=== PATIENT | female | born 1960 | race Caucasian/White ===

== ENCOUNTER 2018-03-27 19:01 | Emergency (ER) | payer OTHER, MEDICARE ==
[2018-03-27] MEDS ORDERED: Ondansetron 4 MG/2 ML SDV IVPUSH ONE (19:12)
[2018-03-27] MEDS ORDERED: Sodium Chloride 0.9% 10 ML Syringe FLUSH PRN (19:12)
[2018-03-27] MEDS ORDERED: Morphine 10 MG/ML Syringe IVPUSH ONE (19:12)
[2018-03-27] MEDS ORDERED: Sodium Chloride 0.9% 1,000 ML IV ONE ×2 (19:12→21:04)
[2018-03-27] MEDS ORDERED: Sodium Chloride 0.9% 2.5 ML Syringe FLUSH PRN (19:12)
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
[2018-03-27 20:00] LABS: CHLORIDE,CL 103 mmol/L (98-107); SODIUM,NA 140 mmol/L (136-145)
[2018-03-27] MEDS ORDERED: Iopamidol 755 MG/ML 200 ML Multipack Bottle IVPUSH STA (20:38)
[2018-03-27] MEDS ORDERED: Ketorolac 30 MG/ML SDV IVPUSH ONE (21:40)
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
== END 2018-03-27 22:00 | disposition home or self-care (01) ==
LOC: MW.ED 19:01
DX: S20.212A Contusion of left front wall of thorax, initial encounter (principal); S90.02XA Contusion of left ankle, initial encounter; S90.01XA Contusion of right ankle, initial encounter; S60.221A Contusion of right hand, initial encounter; E11.9 Type 2 diabetes mellitus without complications; Z88.0 Allergy status to penicillin; Z88.8 Allergy status to other drugs, medicaments and biological substances; V49.9XXA Car occupant (driver) (passenger) injured in unspecified traffic accident, initial encounter; W22.11XA Striking against or struck by driver side automobile airbag, initial encounter
CPT/HCPCS: 36415; 71045; 71260; 72125; 73120; 73610; 73620; 74177; 80053; 83690; 84484; 85025; 85610; 93005; 96361; 96374; 96375; 99285; G0390; G0480; J1885; J2270; J2405; J7040; Q9967

== ENCOUNTER 2018-03-28 13:29 | Emergency (ER) | payer OTHER, MEDICARE ==
[2018-03-28] MEDS ORDERED: Ketorolac 60 MG/2 ML SDV IM ONE (13:36)
[2018-03-28] MEDS ORDERED: Cyclobenzaprine 10 MG Tab PO ONE (13:39)
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
--- NOTE | 2018-03-28 14:30 | CR ---
EXAMINATION: Two-view chest (PA and Lateral views). HISTORY: Shortness of breath. FINDINGS: The trachea is midline. The cardiomediastinal silhouette is within normal limits. No pulmonary infilt rates, effusions or pneumothorax. Osseous structures appear unremarkable. IMPRESSION: No acute cardiopulmonary process.
== END 2018-03-28 15:12 | disposition home or self-care (01) ==
LOC: MW.ED 13:29
DX: S20.211A Contusion of right front wall of thorax, initial encounter (principal); E78.00 Pure hypercholesterolemia, unspecified; E11.9 Type 2 diabetes mellitus without complications; Z88.8 Allergy status to other drugs, medicaments and biological substances; Z88.0 Allergy status to penicillin; Z79.899 Other long term (current) drug therapy; Z79.84 Long term (current) use of oral hypoglycemic drugs; V89.2XXA Person injured in unspecified motor-vehicle accident, traffic, initial encounter
CPT/HCPCS: 71046; 99284; A9270; J1885